=== PATIENT | female | born 1930 | race Caucasian/White ===

== ENCOUNTER 2018-07-02 14:01 | Emergency (ER) | payer MEDICARE ==
[2018-07-02] MEDS ORDERED: Adacel (T-DAP) 0.5 ML VIAL ONE (14:34)
== END 2018-07-02 16:08 | disposition home or self-care (01) ==
LOC: ERS 14:01
DX: S00.03XA Contusion of scalp, initial encounter (principal); I10 Essential (primary) hypertension; Z79.899 Other long term (current) drug therapy; Z23 Encounter for immunization; W18.30XA Fall on same level, unspecified, initial encounter
CPT/HCPCS: 90471; 90715

== ENCOUNTER 2019-03-05 15:20 | Emergency (ER) | payer MEDICARE ==
[2019-03-05 17:47] LABS: Bilirubin Negative (Negative); Blood, Urine Small (Negative); Clarity CLEAR (Clear); Glucose, Urine (Dipstick) Negative (Negative); Leukocyte Negative (Negative); Nitrite Positive (Negative); Protein, Urine (Dipstick) Negative (Neg-Trace); Specific Gravity, Urine 1.014 (1.002-1.036); Urobilinogen 0.2 mg/dL (0.2-1.0)
[2019-03-05 17:49] LABS: #Lymphocytes 1.2 thou/uL (1.20-3.40); #Monocytes 1.3 thou/uL (0.11-0.59); #Neutrophils 12.5 thou/uL (1.40-6.50); %Basophils 0.2 % (0.0-1.0); %Eosinophils 0.1 % (0.0-10.0); %Lymphocytes 8.2 % (21.0-51.0); %Monocytes 8.4 % (0.0-10.0); Hemoglobin 13.1 g/dL (12.0-16.0); Mean Corpuscular HGB CONC 32.9 g/dL (32.0-36.0); Mean Corpuscular Hemoglobin 30.6 pg (27.0-31.0); Mean Platelet Volume 8.1 fL (7.4-10.4); Platelet Count 178 thou/uL (130-400); RBC Distribution Width 11.7 % (11.5-14.5); Red Blood Cell (RBC) Count 4.26 mill/uL (4.20-5.40); White Blood Cell (WBC) Count 15.1 thou/uL (4.8-10.8)
[2019-03-05 17:57] LABS: Bacteria/HPF 4+ HPF (None Seen); Hyaline Casts/LPF 0-3 HYALINE CAST LPF (0-3 Hyaline); Pathc Cast-AUWi Flag 0.81 (0-2.49); Squamous Epithelial 0-3 HPF (0-3); WBC/HPF 0-3 HPF (0-3)
[2019-03-05 18:12] LABS: ALT (SGPT) 9 U/L (8-55); AST (SGOT) 13 U/L (5-34); Albumin 3.9 g/dL (3.4-4.8); Alkaline Phosphatase 107 U/L (40-150); Anion Gap 10 mmol/L (10-20); BUN (Urea Nitrogen) 21 mg/dL (9.8-20.1); Bilirubin, Total 0.4 mg/dL (0.2-1.2); CK (CPK) 22 U/L (29-168); Calc. Creatinine Clearance 0 mL/min (70-130); Calcium 9.8 mg/dL (7.8-10.44); Carbon Dioxide 26 mmol/L (23-31); Chloride 104 mmol/L (98-107); Estimated GFR-MDRD 49; Globulin 2.6 g/dL (2.4-3.5); Glucose 133 mg/dL (83-110); Lipase 18 U/L (8-78); Potassium 4.4 mmol/L (3.5-5.1); Protein, Total 6.5 g/dL (6.0-8.3); Sodium 136 mmol/L (136-145)
--- NOTE | 2019-03-05 19:24 | RAD ---
PORTABLE CHEST: 03/05/19 HISTORY: Trauma with diffuse pain. Pain in ribs and back. Heart size is enlarged. Atherosclerotic changes are seen in the aorta. The lungs are clear of infiltr ates. There are no signs of pneumothorax. No rib fractures are identified. IMPRESSION: Cardiomegaly. POS: KATI
== END 2019-03-05 18:30 | disposition home or self-care (01) ==
LOC: ERS 15:20
DX: N39.0 Urinary tract infection, site not specified (principal); I10 Essential (primary) hypertension; Z79.899 Other long term (current) drug therapy; Z79.01 Long term (current) use of anticoagulants; W17.89XA Other fall from one level to another, initial encounter
CPT/HCPCS: 36415; 51701; 71045; 80053; 81003; 81015; 82550; 83690; 85025; 87804; A4353

== ENCOUNTER 2019-03-08 04:41 | Inpatient (IN) | payer MEDICARE ==
[2019-03-08 05:04] LABS: #Lymphocytes 0.7 thou/uL (1.20-3.40); #Monocytes 1.9 thou/uL (0.11-0.59); %Basophils 0.1 % (0.0-1.0); %Eosinophils 0.1 % (0.0-10.0); %Lymphocytes 3.8 % (21.0-51.0); %Monocytes 9.6 % (0.0-10.0); %Neutrophils 86.4 % (42.0-75.0); Hemoglobin 12.3 g/dL (12.0-16.0); Mean Corpuscular HGB CONC 32.5 g/dL (32.0-36.0); Mean Corpuscular Hemoglobin 30.5 pg (27.0-31.0); Mean Platelet Volume 9.1 fL (7.4-10.4); Platelet Count 121 thou/uL (130-400); RBC Distribution Width 11.7 % (11.5-14.5); Red Blood Cell (RBC) Count 4.04 mill/uL (4.20-5.40); White Blood Cell (WBC) Count 19.6 thou/uL (4.8-10.8)
[2019-03-08 05:19] LABS: ALT (SGPT) 8 U/L (8-55); AST (SGOT) 11 U/L (5-34); Albumin 3.2 g/dL (3.4-4.8); Alkaline Phosphatase 101 U/L (40-150); Anion Gap 10 mmol/L (10-20); BUN (Urea Nitrogen) 32 mg/dL (9.8-20.1); Bilirubin, Total 0.4 mg/dL (0.2-1.2); Calc. Creatinine Clearance 0 mL/min (70-130); Calcium 10.4 mg/dL (7.8-10.44); Carbon Dioxide 26 mmol/L (23-31); Chloride 104 mmol/L (98-107); Estimated GFR-MDRD 42; Globulin 3.1 g/dL (2.4-3.5); Glucose 195 mg/dL (83-110); Lipase 8 U/L (8-78); Potassium 4.3 mmol/L (3.5-5.1); Protein, Total 6.3 g/dL (6.0-8.3); Sodium 136 mmol/L (136-145)
[2019-03-08] MEDS ORDERED: Piperacillin/Tazobactam 3.375 GM VIAL ONE (05:32)
--- NOTE | 2019-03-08 07:56 | CT ---
CT ABDOMEN AND PELVIS WITH IV CONTRAST: Date: 03/08/19 INDICATION: Elderly female patient with abdominal pain, nausea, and vomiting. COMPARISON: None. FINDINGS: There is bibasilar atelectasis. The gallbladder is markedly distended with gallbladder wall thickening and pericholecystic fluid. The re is suggestion of some adjacent inflammatory change involving the duodenum. There is some mild enha ncement involving the mucosa of the common bile duct and gallbladder. The pancreas, adrenal glands, and spleen appear within normal limits. Kidneys are within normal limit s. There is inflammatory stranding and fluid in the right upper quadrant of the abdomen adjacent to the gallbladder. There is some mild prominence of adjacent small bowel loops within the right upper quadr ant that may reflect a reactive ileus. Moderate calcifications involving the abdominopelvic vasculature. There is extensive postsurgical change involving the lumbar spine consistent with posterolateral fusi on from L1-L5. There is advanced degenerative change at L5-S1. There is remote-appearing wedge compre ssion abnormality of T12. IMPRESSION: 1. Findings highly suspicious for acute calculus cholecystitis with associated reactive edematous ch anges involving the duodenum and some reactive ileus involving a loop of distal ileum in the right up per quadrant. Mild amount of pericholecystic fluid is seen within the right upper quadrant. Right upp er quadrant ultrasound may be helpful for additional characterization. 2. Bibasilar atelectasis. 3. Other chronic findings as above. POS: BH
--- NOTE | 2019-03-08 08:01 | ULT ---
RIGHT UPPER QUADRANT ULTRASOUND: Date: 03/08/19 INDICATOIN: History of epigastric abdominal pain, nausea, and vomiting. FINDINGS: The gallbladder is markedly distended with gallbladder wall thickening, multiple intraluminal stones, and sludge. There is no report of sonographic Stovall's sign. The common bile duct is upper limits of normal, measuring 6.2 mm. The liver is slightly heterogeneous in appearance and measures 14.4 cm. Pa ncreas is largely obscured. No free fluid is grossly evident. IMPRESSION: 1. Gallbladder distention with stones and gallbladder sludge. There is gallbladder wall thickening. There is no report of sonographic Stovall's sign; however, in light of the patient's recent CT of the abdomen and pelvis demonstrating pericholecystic edema, findings remain suspicious for acute calculus cholecystitis. 2. No additional sonographic abnormality in the right upper quadrant. POS: BH
[2019-03-08] MEDS ORDERED: Ondansetron ODT 4 MG TAB PO PRN (08:36)
[2019-03-08] MEDS ORDERED: Acetaminophen 325 MG TAB PO PRN (08:36)
[2019-03-08] MEDS ORDERED: Ondansetron PF 4 MG/2 ML Vial IVP PRN (08:36)
[2019-03-08] MEDS ORDERED: Metoprolol Tartrate 5 MG/5 ML VIAL IVP PRN (08:36)
--- NOTE | 2019-03-08 09:28 | HP ---
PRIMARY CARE PHYSICIAN: Doe Almendarez MD CHIEF COMPLAINT: Abdominal pain. HISTORY OF PRESENT ILLNESS: Ms. Rod is a present 88-year-old female, who has a history of hypertension. She lives at the [facility], and she says that on Monday, she fell when she was trying to do some walking and says she believes her problems started after this. She says after the fall, on Monday, she got up and she was throwing up and having dry heaves. She was also having abdominal pain as well. She says she went to the ER, where they evaluated her. They x-rayed her ribs to make sure she did have any rib fractures and did urinalysis and found that she had a urinary tract infection. She was given a prescription for Cipro. She says that during this time, she did not really get much better. She was still having poor appetite, abdominal pain, which she says was across her abdomen and over to the right side. The pain got progressively worse and in the morning of admission around 4:00 a.m., she vomited, what would look like old blood and her daughter says she was "talking out of her head." During this time, she was also having some chills and fever off and on and so they brought her to the emergency room again. At this time, they did a CT scan of the abdomen, which demonstrated findings consistent with acute cholecystitis with some reactive edematous changes involving the duodenum and reactive changes in the ileus. She also had an elevated white blood cell count at 19.6, and she is being admitted for acute cholecystitis. The patient denies having any chest pain or shortness of breath. She denies any history of any heart problems or heart disease. She is more or less sedentary and typically gets around on a scooter. She denies any leg pain or leg swelling. The patient has had several surgeries in the past and has had no significant complications. However, she does admit to having bad reactions to most narcotic pain medications. REVIEW OF SYSTEMS: All systems were reviewed and are negative except for that mentioned in the history of present illness. PAST MEDICAL HISTORY: Significant for hypertension, depression, and chronic venous stasis. 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 ALLERGIES: NO ALLERGIES, BUT SHE IS INTOLERANT TO MOST NARCOTICS, WHICH MAKE HER SICK. SOCIAL HISTORY: She is a full code. Her son, Santiago Carmona, is her medical decision maker. She is a nonsmoker and nondrinker and she is . FAMILY HISTORY: Significant for cancer in her sister. MEDICATIONS: Include; 1. Lasix 20 mg daily. 2. Imodium. 3. Cipro 500 mg daily. 4. Celebrex 200 mg p.r.n. 5. Fluoxetine 20 mg daily. 6. Lidoderm patch. 7. Meclizine 25 mg as needed. 8. Metoprolol extended release 50 mg daily. 9. MiraLAX p.r.n. 10. Nifedipine extended release 60 mg daily. 11. Potassium chloride extended release 20 mEq daily. 12. Zofran 4 mg q.8 as needed. PHYSICAL EXAMINATION: GENERAL: She is alert and oriented. She appears to be in no acute distress. She is well developed, well nourished, very pleasant and jovial. VITAL SIGNS: Her blood pressure is 123/70, heart rate 80, respiratory rate of 20, and temperature is 98.1. HEENT: Her pupils are equal, round, and reactive. Extraocular muscles are intact. Her sclerae are anicteric. Throat; no erythema, no exudates. NECK: No adenopathy. No bruits. LUNGS: Clear to auscultation with an occasional rhonchi. There is no wheezing. CARDIOVASCULAR: She has a normal S1 and S2. I did not appreciate an S3 or S4. No murmurs, clicks, or rubs. ABDOMEN: Obese. It is soft. She has some right upper as well as lower quadrant tenderness. There is no rebound. No guarding. No organomegaly. EXTREMITIES: There is no edema. No calf tenderness. No joint effusions. NEUROLOGIC: Cranial nerves are grossly intact. Her muscle strength is 5/5 in both her upper and lower extremities. SKIN AND INTEGUMENT: There are no skin changes. No rash. LABORATORY RESULTS: White blood cell count is 19.6, hemoglobin 12.3, hematocrit is 37.9, and platelet count is 121. Sodium 136, potassium 4.3, chloride is 104, CO2 is 26, BUN of 32, creatinine 1.2, and glucose is 195. ASSESSMENT AND PLAN: 1. This is a pleasant 88-year-old female, who presents with fairly sudden or subacute development of abdominal pain as well as subjective chills and elevated white blood cell count. She has radiographic evidence for acute cholecystitis. Her clinical symptoms are consistent. She will be admitted to the surgical floor, started on IV antibiotics. General Surgery has been consulted and I anticipate that she will require a cholecystectomy. 2. Hypertension. Once she is able to tolerate p.o., we will restart her beta-dilan and have IV metoprolol p.r.n. 3. Depression. This seems to be stable and we will continue fluoxetine. 4. We will get a baseline EKG, if this has not already been done and we will be happy to follow along with you. Job ID: [id number]
[2019-03-08] MEDS: Famotidine/PF 20 mg/2ml Vial SLOW IVP SCH (09:45)
[2019-03-08] MEDS ORDERED: ISOVUE-370 76%-LOCM 1 ML ONE (10:42)
[2019-03-08 11:01] VITALS: BMI 29.0
--- NOTE | 2019-03-08 11:32 | CON ---
DATE OF CONSULTATION: 03/08/2019 HISTORY: This is an 88-year-old woman, who presented with recurrent epigastric right upper quadrant abdominal pain. The patient was seen in the emergency department 3 days ago with insidious onset of epigastric right upper quadrant abdominal pain, associated with multiple episodes of bilious emesis. She was subsequently discharged from emergency department with a presumptive diagnosis of acute urinary tract infection and placed on antibiotics. The patient returned this time with progressive epigastric right upper quadrant abdominal pain, which woke her up this morning. She endorses a blood-tinged bilious emesis this morning. The pain is described as sharp, occasionally radiating to the back. She rates the pain at 9/10 at maximum intensity. She denies any fevers or chills. She denies any change in her bowel habits. PAST MEDICAL HISTORY: Significant for; 1. Essential hypertension. 2. Chronic venous stasis of lower extremities. 3. Chronic depression. PAST SURGICAL HISTORY: Significant for; 1. . 2. Total abdominal hysterectomy. 3. Childhood appendectomy. 4. Two previous exploratory laparotomies and segmental bowel resection and primary anastomosis for abnormal polyps. 5. She also reports 5 previous back surgeries. SOCIAL HISTORY: The patient is a resident of an assisted living facility in [place]. She denies any cigarette smoking, ethanol, or illicit drug abuse. She is . FAMILY HISTORY: Noncontributory for this patient's age. ALLERGIES: THE PATIENT HAS NO KNOWN DRUG ALLERGIES. REVIEW OF SYSTEMS: Ten-point review of systems essentially unremarkable except as stated in past medical history and chief complaint. PHYSICAL EXAMINATION: GENERAL: An 88-year-old normally developed woman, who is otherwise coherent and interactive and appears stated age. The patient is alert and oriented x3. She appears to be in no acute distress at the time of my evaluation. VITAL SIGNS: This morning include blood pressure 122/62, pulse is 73, respiratory rate is 18, temperature 98.3 degrees Fahrenheit, and oxygen saturation is 95% on 2L by nasal cannula oxygen. HEENT: Normocephalic and atraumatic. Pupils are equal, round, and reactive to light and accommodation. HEART: Regular rate and rhythm. No murmurs or gallops auscultated. LUNGS: Clear to auscultation bilaterally. Her breathing regular and nonlabored. ABDOMEN: Soft and obese with right upper quadrant tenderness to palpation. She has a positive Stovall sign. Liver and spleen otherwise nonpalpable below costal margin. She has a healed midline incisional scar, consistent with previous history of multiple abdominal operations. NEUROLOGIC: No focal deficits present. LABORATORY FINDINGS: Today include a CBC with 19,600 white blood cells, hemoglobin and hematocrit of 12.3 and 37.9 respectively, and platelet count is 121,000. Metabolic profile; sodium 136, potassium is 4.3, chloride is 104, bicarb is 26, BUN is 32, creatinine is 1.22, and glucose 195. Total bilirubin 0.4, AST and ALT are 11 and 8 respectively, alkaline phosphatase is normal at 101, and serum lipase is normal at 8. IMAGING STUDIES: I have personally reviewed the abdominal ultrasound obtained in this admission, which is significant for gallbladder distention with multiple intraluminal gallstones and sludge. There is gallbladder wall thickening. Common bile duct is normal for this patient's age at 6.2 mm in diameter. IMPRESSION: Acute cholecystitis with cholelithiasis. RECOMMENDATION: Laparoscopic cholecystectomy. I have advised the patient of the above findings and recommendations. I did also inform her of the risks and benefits of the proposed surgery to include, but not limited to bleeding, infection, injury to bile duct or surrounding structures. This information was given to the patient in the presence of her nurse. I advised the patient of additional likelihood of conversion to open given her multiple intraabdominal operations and possibility that there may be significant adhesions, which may make laparoscopic procedure prohibitive. The patient indicates understanding of the information I provided to her today. I have answered her questions. She is going to consent for the proposed surgical intervention. Thank you again, Dr. Her, for allowing me the opportunity to participate in the care of this patient. Job ID: [id number]
[2019-03-08] MEDS ORDERED: Ondansetron PF 4 MG/2 ML Vial ONE (16:23)
[2019-03-08] MEDS ORDERED: Glycopyrrolate 0.2 MG/ML 5 ML SYRINGE ONE (16:23)
[2019-03-08] MEDS ORDERED: Succinylcholine Chloride 20 MG/ML 10 ml SYRINGE FS ONE (16:23)
[2019-03-08] MEDS ORDERED: Lidocaine 1% PF 5 ML VIAL ONE (16:23)
[2019-03-08] MEDS ORDERED: PROPOFOL 200 MG/20 ML VIAL ONE (16:23)
[2019-03-08] MEDS ORDERED: ePHEDrine 50 MG/ML VIAL ONE (16:23)
[2019-03-08] MEDS ORDERED: Dexamethasone 20 MG/5 ML VIAL ONE (16:23)
[2019-03-08] MEDS ORDERED: Rocuronium Bromide 10 MG/ML (10ML VIAL) ONE (16:23)
[2019-03-08] MEDS ORDERED: ceFOXitin 2 GM/50 ML Duplex BAG IVPB SCH (16:45)
[2019-03-08] MEDS ORDERED: Bupivacaine/Epinephrine 0.25% 30 ML VIAL ONE (18:45)
[2019-03-08] MEDS ORDERED: Fentanyl 100 MCG/2 ML VIAL ONE ×2 (18:59→19:04)
[2019-03-08] MEDS ORDERED: Ondansetron HCl/PF 4 MG/2 ML Vial IVP PRN (21:51)
[2019-03-08] MEDS ORDERED: Promethazine HCl 25 MG/ML VIAL SLOW IVP PRN (21:51)
[2019-03-08] MEDS ORDERED: Promethazine HCl 25 MG/ML VIAL IM PRN (21:51)
--- NOTE | 2019-03-09 00:31 | OP ---
DATE OF PROCEDURE: 03/08/2019 POSTOPERATIVE DIAGNOSES: 1. Acute cholecystitis. 2. Cholelithiasis. POSTOPERATIVE DIAGNOSES: 1. Acute gangrenous cholecystitis. 2. Cholelithiasis. OPERATION PERFORMED: Laparoscopic cholecystectomy. ANESTHESIA: General endotracheal. ESTIMATED BLOOD LOSS: 30 mL. FLUIDS: Given 750 mL crystalloids. COUNTS: Sponge and instrument counts were verified as correct x2. COMPLICATIONS: None apparent at the time of operation. INDICATIONS FOR OPERATION: An 88-year-old woman, presented with abdominal pain. Clinical radiographic examination was consistent with acute cholecystitis cholelithiasis for which the patient was brought to the operating room for cholecystectomy. Findings are consistent with dilated gangrenous acute cholecystitis with cholelithiasis. The gallbladder had a large amount of hydrops and purulent foul-smelling pus. DESCRIPTION OF OPERATION: Informed consent obtained from the patient, was brought to the operating room and placed in supine position. Following general anesthesia, abdomen was sterilely prepped and draped in usual fashion. The skin below the umbilicus was infiltrated with 0.25% Marcaine with epinephrine. A small curvilinear infraumbilical incision was made using 11 scalpel. The umbilical stalk was grasped with a Lalitha and elevated. A Veress needle was inserted through the incision, placed in the peritoneal cavity through which the abdomen was insufflated with 2.5 L of CO2 gas. Intraabdominal pressure noted at 2 mmHg. Following abdominal insufflation, Veress needle was removed and replaced with a 5 mm trocar introduced using a Visiport under laparoscopy. Laparoscopy confirmed proper placement of the port, no injuries to underlying structures. Additional laparoscopy reveals the right upper quadrant completely encased by omental adhesions admixed with copious amount of purulent exudates. Under direct laparoscopy, a 12 mm epigastric and two 5 mm right lateral subcostal ports were placed after the overlying skin were infiltrated with 0.25% Marcaine with epinephrine and appropriate incision was made. The patient was placed in the reverse Trendelenburg position, rotated to her left. I used Prestige grasper to bluntly take down omental adhesions to expose the fundus of a gangrenous gallbladder. I attempted to grasp the gallbladder with a Prestige grasper through the right lateral subcostal port, this was markedly distended in toto. I decompressed the gallbladder using an Endo suction cautery catheter evacuating large amount of white bile followed by purulent foul-smelling pus. I then applied a Prestige grasper to the fundus of the gallbladder, which was elevated cephalad. Omental adhesions were then bluntly taken down from the remainder of the gallbladder. A 2nd Prestige grasper was introduced through the right medial subcostal port grasping the Felton pouch, which was retracted laterally. The cystic duct was dissected free from surrounding structures at the triangle of Calot. The duct was divided between clips, applying 2 clips proximally and 1 clip at the junction of the cystic duct and gallbladder. Cystic artery dissected free from surrounding structures and divided between clips in a similar fashion. The gallbladder was removed from the liver bed using cautery with good hemostasis. The gallbladder was then delivered off the abdominal cavity using an EndoCatch. Operative site was copiously irrigated, cleared with saline, noting good hemostasis in place. Finding no other pathology, laparoscopy was terminated. A #19 Manav drain was introduced into the subhepatic space allowing this to exit the abdominal cavity through the right lateral subcostal port. The drain was secured to anterior abdominal wall using 2-0 silk suture. Fascia of the epigastric port was then closed using 0 Vicryl suture and Endoclosure device on the laparoscopy. The abdomen was desufflated. All ports and instruments removed and accounted for. Skin incisions were closed using 4-0 Monocryl suture in subcuticular fashion. Dermabond was applied over incisional closure. The patient tolerated this operation without any apparent complication and was returned to recovery room in a satisfactory condition. Job ID: [id number]
[2019-03-09 05:17] LABS: #Lymphocytes 0.3 thou/uL (1.20-3.40); #Neutrophils 12.8 thou/uL (1.40-6.50); %Eosinophils 0.1 % (0.0-10.0); %Lymphocytes 2.3 % (21.0-51.0); %Monocytes 7.1 % (0.0-10.0); %Neutrophils 90.5 % (42.0-75.0); Hemoglobin 11.7 g/dL (12.0-16.0); Mean Corpuscular HGB CONC 32.8 g/dL (32.0-36.0); Mean Corpuscular Hemoglobin 31.1 pg (27.0-31.0); Mean Corpuscular Volume 94.8 fL (78.0-98.0); Mean Platelet Volume 10.5 fL (7.4-10.4); Platelet Count 83 thou/uL (130-400); Red Blood Cell (RBC) Count 3.76 mill/uL (4.20-5.40); White Blood Cell (WBC) Count 14.1 thou/uL (4.8-10.8)
[2019-03-09 05:27] LABS: Anion Gap 10 mmol/L (10-20); BUN (Urea Nitrogen) 31 mg/dL (9.8-20.1); Calc. Creatinine Clearance 44 mL/min (70-130); Calcium 10.4 mg/dL (7.8-10.44); Carbon Dioxide 27 mmol/L (23-31); Chloride 106 mmol/L (98-107); Estimated GFR-MDRD 45; Glucose 176 mg/dL (83-110); Potassium 4.8 mmol/L (3.5-5.1); Sodium 138 mmol/L (136-145)
[2019-03-09] MEDS: Enoxaparin Sodium 40 MG/0.4 ML SYRINGE SC SCH (08:36)
[2019-03-09] MEDS: Famotidine/PF 20 mg/2ml Vial SLOW IVP SCH (08:38)
[2019-03-09] MEDS: Piperacillin/Tazobactam 3.375 GM in Sodium Chloride 0.9% 100 ML IVPB SCH ×4 (08:38→21:37)
[2019-03-09 09:52] LABS: ALT (SGPT) 22 U/L (8-55); AST (SGOT) 36 U/L (5-34); Alkaline Phosphatase 106 U/L (40-150); Bilirubin, Direct 0.2 mg/dL (0.1-0.3); Bilirubin, Total 0.3 mg/dL (0.2-1.2)
--- NOTE | 2019-03-09 15:51 | PDOC.PN ---
- Subjective Encounter Start Date: 03/09/19 Encounter Start Time: 09:15 Ms. Rod was seen today in follow-up of acute cholecystitis. She is a bit sleepy this morning, but says she does not have any complaints. She has a bit of abdominal soreness, but otherwise ok. - Objective Resuscitation Status - Order Detail: 03/08/19 08:32 Resuscitation Status Routine Resuscitation Status: FULL: Full Resuscitation MAR Reviewed: Yes Vital Signs & Weight: Vital Signs (12 hours) Temp Pulse Resp BP Pulse Ox 03/09/19 11:00 98.1 F 66 14 126/62 97 03/09/19 08:08 98 03/09/19 07:24 98.4 F 67 18 131/69 98 03/09/19 04:00 98 F 68 18 128/70 97 Weight Weight 180 lb I&O: 03/08/19 03/09/19 03/10/19 06:59 06:59 06:59 Intake Total 600 310 Balance 600 310 Result Diagrams: 03/09/19 04:48 03/09/19 04:48 Phys Exam - Physical Examination HEENT: PERRLA, sclera anicteric Respiratory: no wheezing, no rales, no rhonchi, clear to auscultation bilateral Cardiovascular: RRR, no significant murmur, no rub Gastrointestinal: soft, non-tender, no distention, positive bowel sounds Musculoskeletal: pulses present, edema present Neurological: non-focal Dx/Plan (1) Acute gangrenous cholecystitis Code(s): K81.0 - ACUTE CHOLECYSTITIS Status: Acute (2) Hypertension Code(s): I10 - ESSENTIAL (PRIMARY) HYPERTENSION Status: Chronic (3) Depression Code(s): F32.9 - MAJOR DEPRESSIVE DISORDER, SINGLE EPISODE, UNSPECIFIED Status : Chronic - Plan * Acute GangrenousCholecystitis- Discussed with Dr. Galaviz, she had a significant amount of purrulence around the Gallbladder, and in the abdominal cavity, when she was opened for surgery- will continue antibiotics, and she will need to discharged on antibiotics as well. * HTN- blood pressure is well controlled * Depression- stable- re-start Celexa
[2019-03-10] MEDS: Piperacillin/Tazobactam 3.375 GM in Sodium Chloride 0.9% 100 ML IVPB SCH ×4 (02:46→20:55)
[2019-03-10] MEDS: Famotidine/PF 20 mg/2ml Vial SLOW IVP SCH (08:26)
[2019-03-10] MEDS: Escitalopram Oxalate 10 mg Tablet PO SCH (08:26)
[2019-03-10] MEDS: Enoxaparin Sodium 40 MG/0.4 ML SYRINGE SC SCH (08:26)
[2019-03-10] MEDS ORDERED: Sodium Chloride 0.9% (PF) 10 ML VIAL FS PRN (11:17)
--- NOTE | 2019-03-10 12:31 | RAD ---
ACUTE ABDOMINAL SERIES: CLINICAL HISTORY: Nausea, postoperative. FINDINGS: There is interstitial prominence of each lung. Mild pleural-based densities are seen bilaterally. Enl argement of cardiac silhouette and pulmonary vasculature present. Decubitus views are performed which reveal differential air-fluid levels. There is air distended ralph l demonstrated more notable at the upper and right lateral abdomen. IMPRESSION: Differential air-fluid levels are demonstrated with distention of the bowel. This may be on the basis of ileus versus obstruction. Recommend clinical correlation as well as imaging follow-up. Transcribed Date/Time: 03/10/2019 1:03 PM
--- NOTE | 2019-03-10 15:13 | PDOC.PN ---
- Subjective Encounter Start Date: 03/10/19 Encounter Start Time: 15:11 Ms. Rod was seen today in follow-up post cholecyctectomy. She had an episode of nausea and emesis earlier today. NG tube had to be placed for a short period. She tells me she feels fine now. - Objective Resuscitation Status - Order Detail: 03/08/19 08:32 Resuscitation Status Routine Resuscitation Status: FULL: Full Resuscitation MAR Reviewed: Yes Vital Signs & Weight: Vital Signs (12 hours) Temp Pulse Resp BP Pulse Ox 03/10/19 08:26 96 03/10/19 07:24 98.9 F 127 H 16 130/89 96 03/10/19 04:00 98.5 F 66 16 133/77 95 Weight Weight 180 lb I&O: 03/09/19 03/10/19 03/11/19 06:59 06:59 06:59 Intake Total 600 1180 Balance 600 1180 Result Diagrams: 03/09/19 04:48 03/09/19 04:48 Phys Exam - Physical Examination HEENT: PERRLA Respiratory: no rales + occasional wheeze and rhonchi Cardiovascular: RRR, no significant murmur, no rub Gastrointestinal: soft, non-tender, no distention, positive bowel sounds Musculoskeletal: no edema, pulses present Dx/Plan (1) Acute gangrenous cholecystitis Code(s): K81.0 - ACUTE CHOLECYSTITIS Status: Acute (2) Ileus Code(s): K56.7 - ILEUS, UNSPECIFIED Status: Acute (3) Hypertension Code(s): I10 - ESSENTIAL (PRIMARY) HYPERTENSION Status: Chronic (4) Depression Code(s): F32.9 - MAJOR DEPRESSIVE DISORDER, SINGLE EPISODE, UNSPECIFIED Status : Chronic - Plan * Acute cholecystitis- s/p lap magi- clinically stable, she may have developed a mild ileus * Continue Zosyn * She had some mild wheezing and rhonchi on exam- Will add incentive spirometry * HTN- blood pressure is controlled.
--- NOTE | 2019-03-10 17:58 | PRG ---
DATE OF SERVICE: 03/10/2019 SUBJECTIVE: It is postop day #2 laparoscopic cholecystectomy. The patient had no overnight events. Although this morning, she complains of severe nausea. The patient had blood cultures drawn and both showed no growth to date. The patient reports that her pain is controlled, but again complains of severe nausea. The patient was suspected for ileus. NG tube was placed by Dr. Galaviz. There was a large amount of gastric contents approximately 1 L. NG tube was attempted to clear, but due to the size of the NG tube, it clotted off. NG tube was discontinued at this time, but will replace if the patient continues to get nauseated again. OBJECTIVE: VITAL SIGNS: Temperature 98.9, pulse 127, respirations 16, SpO2 of 96% on room air, BP 130/89. GENERAL: The patient awake and alert in bed. The patient in moderate distress due to severe nausea. NEUROLOGIC: The patient is awake, alert, oriented x3. HEENT: Normocephalic and atraumatic. HEART: Regular rate and rhythm. The patient slightly tachycardic. LUNGS: Breathing regular and nonlabored. No distress. Auscultation clear bilaterally. ABDOMEN: Soft, distended. Positive active bowel sounds. LABORATORY DATA: No labs to evaluate today. DIAGNOSTIC STUDIES: Acute abdominal series; differential air-fluid levels demonstrated with distention of the bowel. Ileus versus obstruction. IMPRESSION: Status post laparoscopic cholecystectomy day #2, ileus. PLAN: We will continue supportive care. We will continue antibiotics. We will continue pain control. We will replace NG tube if the patient becomes nauseated again. The patient was examined with Dr. Galaviz this morning during rounds. Job ID: [id number] [id number]
[2019-03-11] MEDS: Piperacillin/Tazobactam 3.375 GM in Sodium Chloride 0.9% 100 ML IVPB SCH ×4 (02:04→20:48)
[2019-03-11 08:28] LABS: Anion Gap 13 mmol/L (10-20); BUN (Urea Nitrogen) 28 mg/dL (9.8-20.1); Calc. Creatinine Clearance 56 mL/min (70-130); Calcium 10.4 mg/dL (7.8-10.44); Carbon Dioxide 27 mmol/L (23-31); Chloride 105 mmol/L (98-107); Estimated GFR-MDRD 60; Glucose 87 mg/dL (83-110); Potassium 4.3 mmol/L (3.5-5.1); Sodium 141 mmol/L (136-145)
[2019-03-11] MEDS: Enoxaparin Sodium 40 MG/0.4 ML SYRINGE SC SCH (08:37)
[2019-03-11] MEDS: Pantoprazole 40 MG VIAL IVP SCH (08:37)
[2019-03-11] MEDS: Escitalopram Oxalate 10 mg Tablet PO SCH (08:37)
[2019-03-11] MEDS: Famotidine/PF 20 mg/2ml Vial SLOW IVP SCH (08:37)
[2019-03-11 10:40] LABS: Hemoglobin 11.5 g/dL (12.0-16.0); Mean Corpuscular HGB CONC 32.1 g/dL (32.0-36.0); Mean Corpuscular Hemoglobin 30.9 pg (27.0-31.0); Mean Corpuscular Volume 96.3 fL (78.0-98.0); Mean Platelet Volume 10.3 fL (7.4-10.4); RBC Distribution Width 12.2 % (11.5-14.5); Red Blood Cell (RBC) Count 3.71 mill/uL (4.20-5.40)
[2019-03-11 10:44] LABS: Platelet Count 198 thou/uL (130-400)
[2019-03-11 10:50] LABS: Band 4 % (5-11); Eosinophils 4 % (0-10); Lymphocytes 18 % (21-51); MDiff Complete? YES; Metamyelocyte 1 % (0-0); Monocytes 18 % (0-10); Myelocyte 2 % (0-0); Neutrophil 52 % (42-75); Platelet Clumps MARKED; Platelet Morphology Comment Appears Adequate; RBC Morphology Normal; Reactive Lymphocytes 1 % (0-10)
--- NOTE | 2019-03-11 18:10 | PDOC.PN ---
- Subjective Encounter Start Date: 03/11/19 Encounter Start Time: 13:00 Ms. Rod was seen in follow-up post cholecystectomy. she does not have any complaints today. She denies any nausea, and denies abdominal pain. - Objective Resuscitation Status - Order Detail: 03/08/19 08:32 Resuscitation Status Routine Resuscitation Status: FULL: Full Resuscitation MAR Reviewed: Yes Vital Signs & Weight: Vital Signs (12 hours) Temp Pulse Resp BP Pulse Ox 03/11/19 15:07 98.3 F 99 18 142/95 H 96 03/11/19 10:56 98.4 F 93 18 134/85 93 L 03/11/19 08:37 94 L 03/11/19 07:05 98.0 F 101 H 18 134/81 94 L Weight Weight 180 lb I&O: 03/10/19 03/11/19 03/12/19 06:59 06:59 06:59 Intake Total 1180 1110 Output Total 1010 Balance 1180 100 Result Diagrams: 03/11/19 07:29 03/11/19 07:29 Phys Exam - Physical Examination HEENT: PERRLA Respiratory: no wheezing, no rales, no rhonchi, clear to auscultation bilateral Cardiovascular: RRR, no significant murmur, no rub Gastrointestinal: soft, non-tender, no distention, positive bowel sounds Musculoskeletal: pulses present, edema present trace pedal edema Dx/Plan (1) Acute gangrenous cholecystitis Code(s): K81.0 - ACUTE CHOLECYSTITIS Status: Acute (2) Ileus Code(s): K56.7 - ILEUS, UNSPECIFIED Status: Acute (3) Hypertension Code(s): I10 - ESSENTIAL (PRIMARY) HYPERTENSION Status: Chronic (4) Depression Code(s): F32.9 - MAJOR DEPRESSIVE DISORDER, SINGLE EPISODE, UNSPECIFIED Status : Chronic - Plan * Acute gangrenous cholecystitis- she is s/p lap magi- continue Zosyn * HTN- blood pressure is stable * Anticipate discharge back to assisted living facility on a course of oral antibiotics tomorrow if stable .
[2019-03-11] MEDS: Senokot S 8.6-50 MG TAB PO SCH (20:48)
--- NOTE | 2019-03-12 00:45 | PRG ---
DATE OF SERVICE: 03/11/2019 This is Kiana Jones NP dictating a report for Wilfrido Galaviz DO. SUBJECTIVE: This is a 88-year-old female, postop day #3 laparoscopic cholecystectomy. The patient had no overnight events. The patient reports feeling much better today and denies any nausea or vomiting. The patient able to tolerate the diet. The patient still has not had a bowel movement, but is passing a little bit of gas. OBJECTIVE: VITAL SIGNS: Temperature 98.0, pulse 93, respirations 18, SpO2 of 94% on room air, blood pressure 134/81. GENERAL: The patient awake, alert, in no distress. NEUROLOGIC: The patient awake, alert, oriented x3. No neurological deficits. HEENT: Normocephalic, atraumatic. HEART: Regular rate and rhythm. LUNGS: Breathing regular and nonlabored. No distress. ABDOMEN: Soft, nontender, nondistended. Positive bowel sounds. LABORATORY DATA: WBC 7.0, RBC 3.71, hemoglobin 11.5, hematocrit 35.8. Sodium 141, potassium 4.3, chloride 105, carbon dioxide 27, anion gap 13, BUN 28, creatinine 0.89, estimated GFR 60, glucose 87, calcium 10.8. DIAGNOSTICS: There are no diagnostics to review. IMPRESSION: 1. Status post laparoscopic cholecystectomy, postop day #3. 2. Ileus, resolved. PLAN: We will continue supportive care. We will continue antibiotics and pain control. The patient should be able to be discharged tomorrow back to [facility]. Plan has been discussed with Dr. Galaviz who agrees. Job ID: [id number]
[2019-03-12] MEDS: Piperacillin/Tazobactam 3.375 GM in Sodium Chloride 0.9% 100 ML IVPB SCH ×2 (01:46→12:02)
[2019-03-12] MEDS ORDERED: Amoxicillin/Potassium Clav 875 MG TAB PO SCH (09:00)
[2019-03-12] MEDS ORDERED: Polyethylene Glycol 3350 17 GM Packet PO SCH (09:00)
[2019-03-12] MEDS: Escitalopram Oxalate 10 mg Tablet PO SCH (09:36)
[2019-03-12] MEDS: Famotidine/PF 20 mg/2ml Vial SLOW IVP SCH (09:36)
[2019-03-12] MEDS: Senokot S 8.6-50 MG TAB PO SCH (09:36)
[2019-03-12] MEDS: Pantoprazole 40 MG VIAL IVP SCH (09:37)
[2019-03-12] MEDS: Enoxaparin Sodium 40 MG/0.4 ML SYRINGE SC SCH (09:38)
[2019-03-12 15:58] VITALS: BP 131/77; TEMP 97.9
--- NOTE | 2019-03-12 16:28 | DIS ---
DATE OF ADMISSION: 03/08/2019 DATE OF DISCHARGE: 03/12/2019 DISCHARGE DISPOSITION: Inpatient rehabilitation. FOLLOWUP: 1. Follow up with primary care physician, Dr. Almendarez in a week. 2. Follow up with General Surgery, Dr. Galaviz in 2 weeks. DISCHARGE MEDICATIONS: Augmentin 875 mg twice a day for total of 10 days, Lasix 20 mg daily as needed; Procardia XL 30 mg daily, hold for systolic blood pressure less than 130; Protonix 40 mg daily for next 2 weeks; MiraLAX 17 g daily; Florastor 250 mg daily; Senokot-S two tablets b.i.d., Toprol-XL 50 mg daily, Lexapro 10 mg daily. INPATIENT CONDENSER CLEANER: General Surgery, Dr. Galaviz. The patient was seen and examined on the day of discharge. Denies any new complaints. No chest pain, shortness of breath, or palpitations. The patient denies any nausea or vomiting at this time. She is tolerating oral consistency. BRIEF HOSPITAL COURSE: The patient is an 88-year-old female with hypertension, presented to the emergency room with abdominal discomfort. CT scan of the abdomen and pelvis done in the emergency room was consistent with acute cholecystitis. She underwent right upper quadrant ultrasound that showed gallbladder distention with stones along with gallbladder wall thickening. She underwent laparoscopic cholecystectomy by Dr. Galaviz. She developed ileus postop, requiring NG tube decompression. She is tolerating oral consistency and has been cleared by General Surgery for discharge. She also had mild acute kidney injury with creatinine 1.22 that has improved to 0.89. Lasix has been changed to as needed. Procardia XL dose has been reduced to 30 mg daily from 60 mg daily. She appears stable for discharge. FINAL DIAGNOSES: 1. Sepsis with acute organ dysfunction secondary to acute gangrenous cholecystitis, status post laparoscopic cholecystectomy. 2. Acute kidney injury on chronic kidney disease stage 2. 3. Mild protein-calorie malnutrition. 4. Hypertension. 5. Postoperative ileus, improved. 6. Depression, mild, stable. 7. Chronic venous stasis. 8. Physical deconditioning. 9. Chronic low back pain. Total time coordinating the discharge of this patient was 34 minutes. Job ID: [id number]
== END 2019-03-12 17:38 | DRG 854 ==
LOC: ERS 04:41 → SURG A 07:05
PROVIDERS: ADMIT Internal Medicine; ATTEND Internal Medicine
PROC: 0FT44ZZ Resection of Gallbladder, Percutaneous Endoscopic Approach (ICD-10-PCS; principal; 2019-03-08)
DX: A41.9 Sepsis, unspecified organism (principal); K80.00 Calculus of gallbladder with acute cholecystitis without obstruction; K56.7 Ileus, unspecified; N17.9 Acute kidney failure, unspecified; E44.1 Mild protein-calorie malnutrition; K82.A1 Gangrene of gallbladder in cholecystitis; N18.2 Chronic kidney disease, stage 2 (mild); I12.9 Hypertensive chronic kidney disease with stage 1 through stage 4 chronic kidney disease, or unspecified chronic kidney disease; M54.5 Low back pain; I87.8 Other specified disorders of veins; F32.9 Major depressive disorder, single episode, unspecified; Z88.5 Allergy status to narcotic agent; Z68.29 Body mass index [BMI] 29.0-29.9, adult; Z79.899 Other long term (current) drug therapy; Z90.49 Acquired absence of other specified parts of digestive tract; Z90.710 Acquired absence of both cervix and uterus; R65.20 Severe sepsis without septic shock; G89.29 Other chronic pain
CPT/HCPCS: 36415; 51701; 71045; 74022; 74177; 76705; 80048; 80053; 80076; 81003; 81015; 82550; 83690; 85025; 87040; 87804; 88304; 93005; 96365; A4353; C9113; J0694; J1100; J1650; J2001; J2405; J2543; J2704; J3010; J3490; Q9966; S0028

== ENCOUNTER 2019-03-27 22:17 | Emergency (ER) | payer MEDICARE ==
--- NOTE | 2019-03-27 22:56 | RAD ---
XR Ankle Rt 3 View STANDARD History: [Trauma] Comparison: None. Findings: No acute fracture or malalignment. Mild degenerative narrowing at the ankle mortise. No lat eral talar shift. Impression: No acute abnormality.
== END 2019-03-27 23:58 | disposition home or self-care (01) ==
LOC: ERS 22:17
DX: S99.911A Unspecified injury of right ankle, initial encounter (principal); I10 Essential (primary) hypertension; W08.XXXA Fall from other furniture, initial encounter

== ENCOUNTER 2019-03-30 07:31 | Inpatient (IN) | payer MEDICARE ==
[2019-03-30 08:10] LABS: INR-International Normal Ratio 1.1; PTT 28.7 SEC (22.9-36.1); Prothrombin Time 14.8 SEC (12.0-14.7)
[2019-03-30 08:19] LABS: Bilirubin Small (Negative); Blood, Urine Negative (Negative); Clarity CLEAR (Clear); Glucose, Urine (Dipstick) Negative (Negative); Leukocyte Negative (Negative); Nitrite Negative (Negative); Protein, Urine (Dipstick) 30 mg/dL (Neg-Trace); Specific Gravity, Urine 1.028 (1.002-1.036); pH, Urine 5.5 (5.0-9.0)
[2019-03-30 08:21] LABS: Bacteria/HPF None Seen HPF (None Seen); RBC/HPF 0-3 HPF (0-3); WBC/HPF 0-3 HPF (0-3)
[2019-03-30 08:22] LABS: ALT (SGPT) 9 U/L (8-55); AST (SGOT) 14 U/L (5-34); Albumin 3.6 g/dL (3.4-4.8); Alkaline Phosphatase 109 U/L (40-150); Anion Gap 14 mmol/L (10-20); BUN (Urea Nitrogen) 20 mg/dL (9.8-20.1); Bilirubin, Total 0.6 mg/dL (0.2-1.2); CK (CPK) 39 U/L (29-168); Calc. Creatinine Clearance 0 mL/min (70-130); Calcium 9.5 mg/dL (7.8-10.44); Carbon Dioxide 21 mmol/L (23-31); Chloride 109 mmol/L (98-107); Estimated GFR-MDRD 57; Glucose 122 mg/dL (83-110); Lipase 16 U/L (8-78); Potassium 4.1 mmol/L (3.5-5.1); Protein, Total 6.6 g/dL (6.0-8.3); Sodium 140 mmol/L (136-145)
[2019-03-30 08:30] LABS: Hyaline Casts/LPF 0-3 HYALINE CAST LPF (0-3 Hyaline); Renal Epithelial 0-3 HPF (0-3); Transitional Epithelial 0-3 HPF (0-3)
[2019-03-30 08:31] LABS: Manual Microscopic Reviewed? No Path Casts Seen
[2019-03-30 08:32] LABS: #Eosinphils 0.4 thou/uL (0.0-0.7); #Lymphocytes 1.2 thou/uL (1.20-3.40); #Monocytes 1.1 thou/uL (0.11-0.59); #Neutrophils 7.4 thou/uL (1.40-6.50); %Basophils 0.3 % (0.0-1.0); %Eosinophils 3.5 % (0.0-10.0); %Lymphocytes 11.6 % (21.0-51.0); %Monocytes 10.7 % (0.0-10.0); %Neutrophils 73.9 % (42.0-75.0); Hemoglobin 11.6 g/dL (12.0-16.0); Mean Corpuscular Hemoglobin 30.7 pg (27.0-31.0); Mean Corpuscular Volume 93.1 fL (78.0-98.0); RBC Distribution Width 13.5 % (11.5-14.5); Red Blood Cell (RBC) Count 3.77 mill/uL (4.20-5.40); White Blood Cell (WBC) Count 10.1 thou/uL (4.8-10.8)
--- NOTE | 2019-03-30 09:02 | CT ---
CT Brain WO Con: 03/30/2019 7:57 AM CLINICAL HISTORY: Altered mental status. IMAGING TECHNIQUE: Multiple CT images were obtained of the brain without IV contrast. COMPARISON: Noncontrast CT brain dated July 09, 2018. FINDINGS: Infarct: No acute infarct evident. Hemorrhage: None. Hydrocephalus: None.. Basal cisterns: Normal. Cerebral parenchyma: There is stable moderate chronic small vessel white matter ischemic change and m ild generalized cerebral atrophy.. Midline shift: None. Cerebellum: Normal. Brainstem: Normal. OTHER: Calvarium: Normal. Visualized Paranasal sinuses: Clear. Extracranial soft tissues:Normal IMPRESSION: 1. No acute intracranial abnormality. 2. Stable chronic ischemic change.
--- NOTE | 2019-03-30 09:06 | CT ---
CTA Angio Chest W WO Con 03/30/2019 7:45 AM Indication: Chest Pain Technique: Multiple CTA images were obtained of the thorax with IV contrast. 3D reformatted images were constructed from the raw data. Comparison: None Findings: Pulmonary arteries: No central or segmental pulmonary embolus is evident. Heart and Great Vessels: Moderate cardiomegaly. There are scattered vascular calcifications involvin g coronary artery and thoracic aorta. There is enlargement of the pulmonary arteries. Lungs:There is airspace opacity within both upper lobes in a perihilar distribution. There are some p atchy areas of groundglass opacity within the right infrahilar region as well as the lingula. Pleural space: Small bilateral pleural effusions with bibasilar atelectasis. Upper Abdomen: There is a small hiatal hernia. There is fatty infiltration of liver. The gallbladder surgically absent. Osseous Structures: There is diffuse osteopenia. There is scattered degenerative and osteoarthritic change present. Impression: 1. No central or segmental pulmonary vessels. 2. Cardiomegaly with perihilar airspace opacities and bilateral pleural effusions are suspicious for CHF. Perihilar airspace opacities can be seen with pneumonia. Would recommend correlation. 3. Small hiatal hernia 4. Fatty liver
[2019-03-30 09:43] LABS: Mean Platelet Volume 11.6 fL (7.4-10.4); Platelet Count 144 thou/uL (130-400)
[2019-03-30] MEDS ORDERED: Aspirin Chewable 81 MG TAB ONE (10:23)
[2019-03-30] MEDS ORDERED: Magnesium 2 GM/50 ML BAG (IN WATER) ONE (10:25)
[2019-03-30] MEDS ORDERED: Bisacodyl 5 MG TAB PO PRN (11:03)
[2019-03-30] MEDS ORDERED: Acetaminophen 325 MG TAB PO PRN (11:03)
[2019-03-30] MEDS ORDERED: cefTRIAXone\\ROCEPHIN 1 GM VIAL ONE (11:22)
[2019-03-30] MEDS ORDERED: Enoxaparin Sodium 80 MG/0.8 ML SYRINGE ONE (11:22)
[2019-03-30] MEDS: cefTRIAXone\\ROCEPHIN 1 GM in Sodium Chloride 0.9% 100 ML IVPB SCH (11:28)
[2019-03-30] MEDS ORDERED: Enoxaparin Sodium 80 MG/0.8 ML SYRINGE SC SCH (11:30)
[2019-03-30] MEDS ORDERED: ISOVUE-370 76%-LOCM 1 ML ONE (11:57)
--- NOTE | 2019-03-30 12:08 | HP ---
PRIMARY CARE PROVIDER: Doe Almendarez MD CHIEF COMPLAINT: Altered mental status. HISTORY OF PRESENT ILLNESS: Ms. Rod is a pleasant 88-year-old lady, who was seen at [facility] on March 30, 2019. The patient is able to provide some history. The patient's daughter was by the bedside and was able to provide collateral history. Additional history was obtained from discussion with emergency room physician and review of medical records. Ms. Rod was hospitalized at [facility] from March 08 to of this year for sepsis secondary to acute gangrenous cholecystitis. She underwent laparoscopic cholecystectomy. She was discharged to [facility]. The patient's family reports that she had some episodes of confusion prior to discharge from the hospital. At [facility], she was diagnosed with yeast infection as well as urinary tract infection. She was treated with ciprofloxacin. She was discharged to [facility] 5 days ago. She was continuing treatment with ciprofloxacin, but has been "going downhill." She was reportedly tired. She usually does not walk and uses a scooter. A couple of days ago, she tried to stand up and ended up twisting her right ankle. She had imaging done, which did not show any fractures. She does not use oxygen at [place]. She called her daughter earlier today around 5:00 a.m. and was confused. She was reportedly seeing writing on ceiling. She also did not know where she was. By the time I saw her, Ms. Rod is oriented x3. She denies any chest pain or palpitations. The patient was reportedly hypoxic with oxygen saturations in the 70s when EMS saw her. REVIEW OF SYSTEMS: All other systems reviewed and found to be negative. PAST MEDICAL HISTORY: Hypertension, depression, chronic venous stasis, and gangrenous cholecystitis. 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 CODE STATUS: I discussed her code status. She is full code. ALLERGIES: NARCOTICS. SOCIAL HISTORY: The patient denies tobacco use, alcohol use, or recreational drug use. She is currently a resident at [facility]. FAMILY HISTORY: Congestive heart failure in her mother, myocardial infarction in her son, and cancer in her sister. CURRENT MEDICATIONS: 1. Lexapro 20 mg daily. 2. Procardia XL 60 mg daily. 3. Metoprolol succinate 50 mg daily. 4. Ciprofloxacin 500 mg 2 times a day. 5. Celebrex 200 mg daily. 6. Furosemide 20 mg daily. 7. Meclizine 25 mg 3 times a day p.r.n. 8. Zofran 4 mg every 6 hours as needed. 9. Aspirin 325 mg daily. 10. Pantoprazole 40 mg daily. PHYSICAL EXAMINATION: GENERAL: On examination, Ms. Rod is awake and alert, not in acute distress. VITAL SIGNS: Blood pressure is 138/81, pulse 71, respiratory rate 24, and oxygen saturation 100% on 2 L of oxygen. She is afebrile. EYES: No scleral icterus. No conjunctival pallor. ENT: Moist mucosal membranes. No oropharyngeal erythema or exudates. NECK: Supple, nontender. Trachea is midline. RESPIRATORY: Accessory muscles of breathing are not active. Chest wall movements are symmetric bilaterally. LUNGS: Clear to auscultation without wheeze, rhonchi, or crepitations. CARDIOVASCULAR: S1 and S2 are heard, irregular. Peripheral pulses palpable. No carotid bruit. No pericardial rub. ABDOMEN: Soft, nontender. Bowel sounds heard. NEUROLOGIC: Cranial nerves 2 through 12 are intact. MUSCULOSKELETAL: Power is 5/5 in all 4 extremities. She has bruise over the right foot. SKIN: No rashes or subcutaneous nodules. LYMPHATIC: No cervical lymphadenopathy. PSYCHIATRIC: Normal mood. Normal affect. The patient is oriented to person, place, and time. LABORATORY DATA: Ms. Rod's labs and investigations were reviewed. I reviewed her electrocardiogram, which shows atrial fibrillation with rapid ventricular response, no ST changes to suggest an acute coronary syndrome. I also reviewed her noncontrast CT scan of the brain, which did not show any acute stroke or bleed. CT angiogram of the chest did not show any central or segmental pulmonary embolism. She has cardiomegaly with perihilar airspace opacities and bilateral pleural effusions suspicious for CHF or pneumonia. She has normal white count, normocytic anemia with hemoglobin 11.6, normal platelet count. INR 1.1. Normal sodium, normal potassium, normal creatinine, normal LFTs, elevated BNP of 633, ammonia is not elevated, and TSH is normal. Troponin I is normal. Lipase is normal. Lactic acid is normal. Urinalysis is positive for protein, ketones, and bilirubin. ASSESSMENT AND PLAN: Ms. Rod is a pleasant 88-year-old lady, who was seen at [facility] on March 30, 2019. Her problem list includes: 1. Acute metabolic encephalopathy: Ms. Rod is presenting with acute metabolic encephalopathy, most likely secondary to hypoxia from atrial fibrillation with rapid ventricular response. She will be admitted to the hospital for further management. 2. Atrial fibrillation with rapid ventricular response: The patient initially had atrial fibrillation with rapid ventricular response. Ventricular response is now controlled. She did receive one dose of intravenous Cardizem in the emergency room. She has a CHADS2 score of 2. I discussed risks versus benefits of anticoagulation. We will start her on Lovenox for now for stroke prophylaxis. She is on Procardia and metoprolol at [place], we will continue those medications. 3. Acute hypoxic respiratory failure: Most likely secondary to volume overload from atrial fibrillation with rapid ventricular response. We will continue oxygen as needed. We will also administer furosemide. 4. Hypertension: We will resume home medications, monitor vital signs, and titrate antihypertensives as needed. 5. Depression: Mild, stable. 6. Urinalysis is not suggestive of urinary tract infection at this time. However, she is on current antibiotics and this may be a false negative. We will switch to ceftriaxone while she is in the hospital. Her last urine culture from March 25 grew Citrobacter freundii, which is sensitive to ceftriaxone as well as fluoroquinolones. LEVEL OF RISK: High. LEVEL OF COMPLEXITY: High. Job ID: [id number]
[2019-03-30] MEDS ORDERED: Ondansetron PF 4 MG/2 ML Vial IVP PRN (16:29)
[2019-03-30] MEDS ORDERED: Ondansetron ODT 4 MG TAB SL PRN (16:29)
[2019-03-30 16:40] LABS: Troponin I Less than 0.010 ng/mL (< 0.028)
[2019-03-30] MEDS: Enoxaparin Sodium 80 MG/0.8 ML SYRINGE SC SCH (20:57)
[2019-03-31 05:58] LABS: Anion Gap 11 mmol/L (10-20); BUN (Urea Nitrogen) 19 mg/dL (9.8-20.1); Calc. Creatinine Clearance 0 mL/min (70-130); Calcium 9.7 mg/dL (7.8-10.44); Carbon Dioxide 21 mmol/L (23-31); Chloride 111 mmol/L (98-107); Estimated GFR-MDRD 71; Glucose 116 mg/dL (83-110); Potassium 3.9 mmol/L (3.5-5.1); Sodium 139 mmol/L (136-145)
[2019-03-31] MEDS ORDERED: Lidocaine 5% Patch TD SCH (08:00)
[2019-03-31] MEDS ORDERED: Furosemide 40 MG/4 ML VIAL SLOW IVP SCH (08:00)
[2019-03-31] MEDS ORDERED: Lidocaine Patch Removal 1 EACH TOP SCH (08:15)
[2019-03-31] MEDS ORDERED: Non-Formulary Item 1 EACH (Fluoxetine Hcl [Fluoxetine Hcl] 20 MG) PO SCH (09:00)
[2019-03-31] MEDS: Aspirin 325 mg Enteric Coated Tablet PO SCH (09:01)
[2019-03-31] MEDS: FLUoxetine HCl 20 MG CAP PO SCH (09:01)
[2019-03-31] MEDS: NIFEdipine XL 30 MG TAB PO SCH (09:01)
[2019-03-31] MEDS: Enoxaparin Sodium 80 MG/0.8 ML SYRINGE SC SCH ×2 (09:01→21:51)
[2019-03-31 10:42] LABS: #Eosinphils 0.5 thou/uL (0.0-0.7); #Monocytes 0.8 thou/uL (0.11-0.59); #Neutrophils 6.4 thou/uL (1.40-6.50); %Basophils 0.1 % (0.0-1.0); %Eosinophils 5.6 % (0.0-10.0); %Monocytes 9.3 % (0.0-10.0); Mean Corpuscular HGB CONC 32.4 g/dL (32.0-36.0); Mean Corpuscular Hemoglobin 30.7 pg (27.0-31.0); Mean Corpuscular Volume 94.9 fL (78.0-98.0); Mean Platelet Volume 10.2 fL (7.4-10.4); Platelet Count 131 thou/uL (130-400); RBC Distribution Width 13.3 % (11.5-14.5); Red Blood Cell (RBC) Count 3.59 mill/uL (4.20-5.40); White Blood Cell (WBC) Count 8.6 thou/uL (4.8-10.8)
[2019-03-31] MEDS: cefTRIAXone\\ROCEPHIN 1 GM in Sodium Chloride 0.9% 100 ML IVPB SCH (11:31)
--- NOTE | 2019-03-31 14:00 | PDOC.PN ---
- Subjective Encounter Start Date: 03/31/19 Encounter Start Time: 07:00 Pt seen for followup re: acute metabolic encephalopathy. Feels better. No fevers or chills. - Objective Resuscitation Status - Order Detail: 03/30/19 11:03 Resuscitation Status Routine Resuscitation Status: FULL: Full Resuscitation Discussed with: patient and daughter GABY Reviewed: Yes Vital Signs & Weight: Vital Signs (12 hours) Temp Pulse Resp BP Pulse Ox 03/31/19 09:01 138 H 03/31/19 08:00 97.6 F 138 H 19 120/88 96 03/31/19 03:04 97.7 F 88 18 132/60 94 L Weight Weight 2.878 oz Result Diagrams: 03/31/19 10:15 03/31/19 04:43 EKG Reviewed by me: Yes (Tele: patricia doty) Phys Exam - Physical Examination Constitutional: NAD HEENT: moist MMs, sclera anicteric, oral pharynx no lesions, 2+ tonsils Neck: no nodes, no JVD, supple, full ROM Respiratory: clear to auscultation bilateral Cardiovascular: no rub, irregular S1, S2 Gastrointestinal: soft, non-tender, no distention, positive bowel sounds Neurological: moves all 4 limbs Psychiatric: normal affect, A&O x 3 Dx/Plan (1) Acute metabolic encephalopathy Code(s): G93.41 - METABOLIC ENCEPHALOPATHY Status: Acute Comment: Improving , likely due to hypoxia and uti (2) UTI (urinary tract infection) Status: Acute Comment: continue IV ceftriaxone (3) Acute respiratory failure with hypoxia Code(s): J96.01 - ACUTE RESPIRATORY FAILURE WITH HYPOXIA Status: Acute Comment: Likely due to volume overload (4) Atrial fibrillation with RVR Code(s): I48.91 - UNSPECIFIED ATRIAL FIBRILLATION Status: Acute Comment: continue Lovenox. Pt is on cardizem drip. (5) Volume overload Code(s): E87.70 - FLUID OVERLOAD, UNSPECIFIED Status: Acute Comment: continue furosemide (6) Hypertension Code(s): I10 - ESSENTIAL (PRIMARY) HYPERTENSION Status: Chronic Comment: controlled - Plan * . Review of Systems - Review of Systems Constitutional: negative: fever, chills, sweats, weakness, malaise Respiratory: negative: Cough, Shortness of Breath, SOB with Excertion, Pleuritic Pain, Wheezing Cardiovascular: negative: chest pain, palpitations, orthopnea, paroxysmal nocturnal dyspnea, edema, light headedness Gastrointestinal: negative: Nausea, Vomiting, Abdominal Pain, Diarrhea, Constipation, Melena, Hematochezia Genitourinary: negative: Dysuria, Frequency, Incontinence, Hematuria, Retention - Medications/Allergies Allergies/Adverse Reactions: Allergies Allergy/AdvReac Type Severity Reaction Status Date / Time Unable to Assess AdvReac Unknown Nausea Verified 03/31/19 04:09 Medications: Current Medications Acetaminophen (Tylenol) 650 mg PO Q4H PRN PRN Reason: Headache/Fever/Mild Pain (1-3) Aspirin (Ecotrin) 325 mg PO DAILY REPLACED BY [facility] Last Admin: 03/31/19 09:01 Dose: 325 mg Bisacodyl (Dulcolax) 10 mg PO DAILYPRN PRN PRN Reason: Constipation Enoxaparin Sodium (Lovenox) 80 mg SC 0900,2100 REPLACED BY [facility] Last Admin: 03/31/19 09:01 Dose: 80 mg Fluoxetine HCl (Prozac) 20 mg PO DAILY REPLACED BY [facility] Last Admin: 03/31/19 09:01 Dose: 20 mg Furosemide (Lasix) 40 mg SLOW IVP 0600,1400 REPLACED BY [facility] Ceftriaxone Sodium 1 gm/ (Sodium Chloride) 100 mls @ 200 mls/hr IVPB Q24HR REPLACED BY [facility] Last Admin: 03/31/19 11:31 Dose: 100 mls Diltiazem HCl 125 mg/ Sodium (Chloride) 125 mls @ 5 mls/hr IVPB INF DREW; Protocol Last Admin: 03/31/19 07:36 Dose: 125 mls Lidocaine (Lidoderm 5% Patch) 1 patch TD ASDIR REPLACED BY [facility] Metoprolol Succinate (Toprol Xl) 50 mg PO DAILY REPLACED BY [facility] Last Admin: 03/31/19 09:01 Dose: 50 mg Miscellaneous Medication (Lidocaine Patch Removal) 1 each TOP ASDIR REPLACED BY [facility] Nifedipine (Procardia Xl) 30 mg PO DAILY REPLACED BY [facility] Last Admin: 03/31/19 09:01 Dose: 30 mg Pantoprazole Sodium (Protonix) 40 mg PO DAILY REPLACED BY [facility] Stop: 04/14/19 09:01 Last Admin: 03/31/19 09:01 Dose: 40 mg Sodium Chloride (Flush - Normal Saline) 10 ml IVF Q12HR REPLACED BY [facility] Last Admin: 03/31/19 07:36 Dose: 10 ml Sodium Chloride (Flush - Normal Saline) 10 ml IVF PRN PRN PRN Reason: Saline Flush
[2019-03-31] MEDS: Furosemide 40 MG/4 ML VIAL SLOW IVP SCH (14:48)
--- NOTE | 2019-03-31 22:26 | CON ---
DATE OF CONSULTATION: HISTORY: Natacha Rod is an 88-year-old white female who was just admitted on March 08, 2019. She had abdominal pain and CT scan of the abdomen was consistent with acute cholecystitis. She underwent laparoscopic cholecystectomy and developed ileus postop requiring NG suction. She had an acute gangrenous cholecystitis. She apparently was sent to [facility] 5 days prior to this admission. She has been having increasing weakness. She denies any palpitations, shortness of breath, or chest discomfort. She denies ever having any cardiac problems. On admission, she was found to be in atrial fibrillation. PAST MEDICAL HISTORY: Hypertension, depression, venous stasis. OPERATIONS: Recent laparoscopic cholecystectomy, ankle and wrist surgeries, 5 back surgeries, appendectomy, , bowel resections, hysterectomy. MEDICATIONS: 1. Aspirin 325 daily. 2. Celebrex 200 daily. 3. Lotrimin cream. 4. Fluoxetine 20 mg daily. 5. Furosemide 20 daily p.r.n. 6. Meclizine 25 mg t.i.d. 7. Metoprolol 50 daily. 8. Nifedipine 30 daily. 9. Zofran p.r.n. 10. Protonix 40 daily. 11. MiraLAX. ALLERGIES: NARCOTICS. SOCIAL HISTORY: She does not smoke or drink. FAMILY HISTORY: Myocardial infarction in her son. REVIEW OF SYSTEMS: 10-point review of systems is otherwise unremarkable. PHYSICAL EXAMINATION: VITAL SIGNS: Blood pressure 123/75, pulse of 98 and irregularly irregular. HEENT: PERRL. NECK: Supple. CHEST: Clear. CARDIAC: S1 and S2 normal without any S3, S4, or murmurs. ABDOMEN: Normal bowel sounds without tenderness or organomegaly. EXTREMITIES: Reveal no clubbing, cyanosis, or edema. NEUROLOGIC: Grossly intact. SKIN: Warm and dry. LABORATORY DATA: EKG on admission revealed atrial fibrillation with rapid ventricular response with left bundle-branch block. The heart rate was 113 per minute. Hemoglobin 11.0, hematocrit 34.1, white count 8600, platelets 131,000. INR 1.1. Sodium 139, potassium 3.9, chloride 111, carbon dioxide 21, BUN 19, creatinine 0.77. Cardiac enzymes x3 are normal. TSH is normal. IMPRESSION: 1. New onset atrial fibrillation. I did pull up her EKG from March 08 on the EKG in computer system, and she was indeed in sinus rhythm on that EKG. She has been started on Lovenox 1 mg/kg. 2. Metabolic encephalopathy. The patient is not exactly certain why she is here , but thinks she had nausea and vomiting. 3. Hypoxic respiratory failure. 4. Hypertension. 5. Depression. 6. Status post laparoscopic cholecystectomy. PLAN: Echocardiogram will be performed to assess left ventricular function. I agree with anticoagulation at this time. The patient denies ever having falls. Eventually, we should transition her to an oral anticoagulant. At the present time, we will try to improve her diastolic heart failure and control the rate. Further decisions will be made once echocardiogram has been performed. Job ID: [id number] MTDD
[2019-04-01 05:33] VITALS: BMI 28.7
[2019-04-01] MEDS: Furosemide 40 MG/4 ML VIAL SLOW IVP SCH ×2 (05:33→14:04)
[2019-04-01] MEDS: FLUoxetine HCl 20 MG CAP PO SCH ×2 (09:30→12:17)
[2019-04-01] MEDS: NIFEdipine XL 30 MG TAB PO SCH (09:30)
[2019-04-01] MEDS: Aspirin 325 mg Enteric Coated Tablet PO SCH (09:31)
[2019-04-01] MEDS: Enoxaparin Sodium 80 MG/0.8 ML SYRINGE SC SCH (09:31)
[2019-04-01] MEDS ORDERED: Escitalopram Oxalate 10 mg Tablet PO SCH (11:00)
[2019-04-01] MEDS: cefTRIAXone\\ROCEPHIN 1 GM in Sodium Chloride 0.9% 100 ML IVPB SCH (12:16)
[2019-04-01] MEDS: Apixaban 5 MG TAB PO SCH (20:34)
[2019-04-01] MEDS: Amiodarone 200 MG TAB PO SCH (20:34)
--- NOTE | 2019-04-01 21:15 | PRG ---
DATE OF SERVICE: 04/01/2019 SUBJECTIVE: The patient denies any new complaints. She overall feels better. Shortness of breath is improving. She is still requiring oxygen. She has some dry cough. No fever or chills reported. Telemetry monitoring by my review showed atrial flutter/fibrillation. CT angiogram of the chest by my review on admission showed cardiomegaly with bilateral pleural effusions. REVIEW OF SYSTEMS: The patient denies any nausea, vomiting, diarrhea, or focal deficit. OBJECTIVE: VITAL SIGNS: Temperature 97.7, pulse of 82, blood pressure 120/58, O2 saturation 94% on 2 L nasal cannula. GENERAL: An 88-year-old female, in no apparent distress. LUNGS: Show diminished air entry at bilateral bases with bibasilar rales. No wheezing. HEART: S1 and S2 present. Irregularly irregular. No rubs or gallops. ABDOMEN: Soft. Bowel sounds present. EXTREMITIES: Trace edema in bilateral lower extremities. LABORATORY FINDINGS: BUN 19, creatinine 0.77. Troponin was negative. TSH 0.68. Blood cultures negative. Urine culture negative. Echocardiogram showed left ventricular ejection fraction of 40% to 45% with [id number] tricuspid regurgitation, mild mitral regurgitation. IMPRESSION: 1. Acute hypoxic respiratory failure secondary to acute on chronic diastolic heart failure exacerbation. 2. New-onset atrial fibrillation, rate controlled. 3. [id number] tricuspid regurgitation. 4. Hypertension. 5. Depression, mild, stable. 6. Urinary tract infection, currently on ceftriaxone. She was on ciprofloxacin prior to admission (urinary tract infection was present prior to admission). 7. Chronic venous stasis. 8. Recent acute gangrenous cholecystitis, status post laparoscopic cholecystectomy. 9. Physical deconditioning. 10. Toxic metabolic encephalopathy on admission, improving. PLAN: Cardizem drip will be continued. We will continue anticoagulation with Lovenox. Monitor labs on a daily basis. Continue Toprol-XL. We will hold Procardia XL for systolic blood pressure less than 130. Recheck labs in a.m. Continue other medications. PT/OT evaluation. Job ID: [id number]
[2019-04-02 00:38] LABS: Hemoglobin 10.7 g/dL (12.0-16.0); Platelet Count 157 thou/uL (130-400)
[2019-04-02] MEDS: Furosemide 40 MG/4 ML VIAL SLOW IVP SCH ×2 (05:13→13:20)
[2019-04-02 05:38] LABS: Albumin 3.4 g/dL (3.4-4.8); Anion Gap 13 mmol/L (10-20); BUN (Urea Nitrogen) 20 mg/dL (9.8-20.1); Calc. Creatinine Clearance 51 mL/min (70-130); Calcium 10.2 mg/dL (7.8-10.44); Carbon Dioxide 27 mmol/L (23-31); Chloride 105 mmol/L (98-107); Estimated GFR-MDRD 52; Glucose 138 mg/dL (83-110); Magnesium 1.8 mg/dL (1.6-2.6); Phosphorus 3.2 mg/dL (2.3-4.7); Potassium 3.4 mmol/L (3.5-5.1); Sodium 142 mmol/L (136-145)
[2019-04-02] MEDS: Amiodarone 200 MG TAB PO SCH ×2 (08:21→20:03)
[2019-04-02] MEDS: Escitalopram Oxalate 10 mg Tablet PO SCH (08:22)
[2019-04-02] MEDS: Saccharomyces boulardii 250 MG CAP PO SCH (08:22)
[2019-04-02] MEDS: NIFEdipine XL 30 MG TAB PO SCH ×2 (08:22→08:24)
[2019-04-02] MEDS: Apixaban 5 MG TAB PO SCH ×2 (08:22→20:03)
[2019-04-02] MEDS ORDERED: Aspirin 81 mg Enteric Coated Tablet PO SCH (09:00)
[2019-04-02] MEDS ORDERED: Potassium Chloride 20 MEQ TAB PO SCH (10:00)
[2019-04-02] MEDS: cefTRIAXone\\ROCEPHIN 1 GM in Sodium Chloride 0.9% 100 ML IVPB SCH (10:48)
[2019-04-02 15:05] LABS: #Eosinphils 0.7 thou/uL (0.0-0.7); #Neutrophils 6.2 thou/uL (1.40-6.50); %Basophils 0.4 % (0.0-1.0); %Eosinophils 7.6 % (0.0-10.0); %Lymphocytes 10.9 % (21.0-51.0); %Monocytes 11.2 % (0.0-10.0); Hypochromia SLIGHT = 6-15 cells (100X) (0-5/hpf); MDiff Complete? YES; Mean Corpuscular HGB CONC 31.8 g/dL (32.0-36.0); Mean Corpuscular Hemoglobin 30.4 pg (27.0-31.0); Mean Corpuscular Volume 95.4 fL (78.0-98.0); Mean Platelet Volume 12.6 fL (7.4-10.4); Platelet Morphology Comment PLT clumps seen-ADEQ; RBC Distribution Width 13.2 % (11.5-14.5); Red Blood Cell (RBC) Count 3.64 mill/uL (4.20-5.40); White Blood Cell (WBC) Count 8.9 thou/uL (4.8-10.8)
[2019-04-02] MEDS: Potassium Chloride 20 MEQ TAB PO SCH (17:26)
--- NOTE | 2019-04-02 18:41 | PDOC.PN ---
- Subjective Encounter Start Date: 04/02/19 Encounter Start Time: 09:30 Patient seen and examined for CHF/Afib. No CP/palpitations. No new complaints. No overnight events - Objective Resuscitation Status - Order Detail: 03/30/19 11:03 Resuscitation Status Routine Resuscitation Status: FULL: Full Resuscitation Discussed with: patient and daughter GABY Reviewed: Yes Vital Signs & Weight: Vital Signs (12 hours) Temp Pulse Pulse Pulse Resp BP BP 04/02/19 15:33 97.6 F 102 H 20 04/02/19 13:55 59 L 97 110/59 L 105/66 04/02/19 11:44 98.4 F 71 18 04/02/19 08:24 71 04/02/19 07:46 99.2 F 71 18 04/02/19 07:45 BP Pulse Ox 04/02/19 15:33 113/56 L 96 04/02/19 13:55 04/02/19 11:44 110/61 95 04/02/19 08:24 04/02/19 07:46 111/70 100 04/02/19 07:45 100 Weight Weight 176 lb 8 oz I&O: 04/01/19 04/02/19 04/03/19 06:59 06:59 06:59 Intake Total 1302 631 6968 Output Total 6346 614 7870 Balance -520 592 120 Result Diagrams: 04/02/19 04:29 04/02/19 04:29 EKG Reviewed by me: Yes (Tele Afib) Phys Exam - Physical Examination Constitutional: NAD Respiratory: no wheezing, no rhonchi Cardiovascular: no rub, irregular Gastrointestinal: soft, positive bowel sounds Musculoskeletal: edema present Neurological: non-focal Dx/Plan - Plan PT/OT IMPRESSION: 1. Acute hypoxic respiratory failure secondary to acute on chronic diastolic heart failure exacerbation. 2. New-onset atrial fibrillation, rate controlled. 3. Hypokalemia 4. Hypertension. 5. Depression, mild, stable. 6. Urinary tract infection, currently on ceftriaxone (present on admission). 7. Chronic venous stasis. 8. Recent acute gangrenous cholecystitis, status post laparoscopic cholecystectomy. 9. Physical deconditioning. 10. Toxic metabolic encephalopathy on admission, improving. 11. Pfocckwx-[id number] tricuspid regurgitation. 12. Chronic Anemia PLAN: Replace Potassium Cont diuresis On Anticoag AM labs On Amiodarone Hold Procardia XK Cont Toprol XL DC Ceftriaxone in 1-2 days Review of Systems - Review of Systems Respiratory: negative: Cough, Dry, Shortness of Breath, Hemoptysis, SOB with Excertion, Pleuritic Pain, Sputum, Wheezing Cardiovascular: negative: chest pain, palpitations, orthopnea, paroxysmal nocturnal dyspnea, edema, light headedness, other - Medications/Allergies Allergies/Adverse Reactions: Allergies Allergy/AdvReac Type Severity Reaction Status Date / Time Unable to Assess AdvReac Unknown Nausea Verified 03/31/19 04:09 Medications: Current Medications Acetaminophen (Tylenol) 650 mg PO Q4H PRN PRN Reason: Headache/Fever/Mild Pain (1-3) Amiodarone HCl (Cordarone) 400 mg PO BID [facility] Last Admin: 04/02/19 08:21 Dose: 400 mg Apixaban (Eliquis) 5 mg PO BID [facility] Last Admin: 04/02/19 08:22 Dose: 5 mg Bisacodyl (Dulcolax) 10 mg PO DAILYPRN PRN PRN Reason: Constipation Last Admin: 04/01/19 20:34 Dose: 10 mg Escitalopram Oxalate (Lexapro) 10 mg PO DAILY [facility] Last Admin: 04/02/19 08:22 Dose: 10 mg Furosemide (Lasix) 40 mg SLOW IVP 0600,1400 [facility] Last Admin: 04/02/19 13:20 Dose: 40 mg Ceftriaxone Sodium 1 gm/ (Sodium Chloride) 100 mls @ 200 mls/hr IVPB Q24HR [facility] Last Admin: 04/02/19 10:48 Dose: 100 mls Diltiazem HCl 125 mg/ Sodium (Chloride) 125 mls @ 5 mls/hr IVPB INF DREW; Protocol Last Admin: 04/02/19 05:13 Dose: 125 mls Lidocaine (Lidoderm 5% Patch) 1 patch TD ASDIR [facility] Metoprolol Succinate (Toprol Xl) 50 mg PO DAILY [facility] Last Admin: 04/02/19 08:22 Dose: 50 mg Miscellaneous Medication (Lidocaine Patch Removal) 1 each TOP ASDIR DREW Nifedipine (Procardia Xl) 30 mg PO DAILY [facility] Last Admin: 04/02/19 08:24 Dose: Not Given Pantoprazole Sodium (Protonix) 40 mg PO DAILY [facility] Stop: 04/14/19 09:01 Last Admin: 04/02/19 08:21 Dose: 40 mg Potassium Chloride (K-Dur) 20 meq PO BID-WM [facility] Last Admin: 04/02/19 17:26 Dose: 20 meq Saccharomyces Boulardii (Florastor) 250 mg PO DAILY [facility] Last Admin: 04/02/19 08:22 Dose: 250 mg Sodium Chloride (Flush - Normal Saline) 10 ml IVF Q12HR [facility] Last Admin: 04/02/19 08:25 Dose: Not Given Sodium Chloride (Flush - Normal Saline) 10 ml IVF PRN PRN PRN Reason: Saline Flush
[2019-04-03] MEDS: Furosemide 40 MG/4 ML VIAL SLOW IVP SCH ×2 (05:41→13:38)
[2019-04-03 06:49] LABS: Anion Gap 13 mmol/L (10-20); BUN (Urea Nitrogen) 24 mg/dL (9.8-20.1); Calc. Creatinine Clearance 42 mL/min (70-130); Calcium 9.6 mg/dL (7.8-10.44); Carbon Dioxide 25 mmol/L (23-31); Chloride 105 mmol/L (98-107); Estimated GFR-MDRD 43; Glucose 126 mg/dL (83-110); Magnesium 1.8 mg/dL (1.6-2.6); Potassium 3.7 mmol/L (3.5-5.1); Sodium 139 mmol/L (136-145)
[2019-04-03 07:28] LABS: #Eosinphils 0.4 thou/uL (0.0-0.7); #Lymphocytes 1.4 thou/uL (1.20-3.40); #Monocytes 1.1 thou/uL (0.11-0.59); %Basophils 0.5 % (0.0-1.0); %Eosinophils 3.8 % (0.0-10.0); %Lymphocytes 13.8 % (21.0-51.0); %Monocytes 11.3 % (0.0-10.0); %Neutrophils 70.7 % (42.0-75.0); Hemoglobin 9.8 g/dL (12.0-16.0); MDiff Complete? YES; Mean Corpuscular HGB CONC 32.5 g/dL (32.0-36.0); Mean Corpuscular Hemoglobin 30.4 pg (27.0-31.0); Mean Corpuscular Volume 93.5 fL (78.0-98.0); Mean Platelet Volume 12.3 fL (7.4-10.4); Platelet Clumps MARKED; Platelet Morphology Comment PLT clumps seen-ADEQ; Polychromasia SLIGHT = 2-3 cells (100X) (0-2/hpf); RBC Distribution Width 13.1 % (11.5-14.5); Red Blood Cell (RBC) Count 3.23 mill/uL (4.20-5.40); White Blood Cell (WBC) Count 9.9 thou/uL (4.8-10.8)
[2019-04-03] MEDS: Escitalopram Oxalate 10 mg Tablet PO SCH (09:10)
[2019-04-03] MEDS: Saccharomyces boulardii 250 MG CAP PO SCH (09:10)
[2019-04-03] MEDS: Apixaban 5 MG TAB PO SCH ×2 (09:15→21:19)
[2019-04-03] MEDS: Amiodarone 200 MG TAB PO SCH ×2 (09:15→21:18)
[2019-04-03] MEDS: Potassium Chloride 20 MEQ TAB PO SCH ×2 (09:15→16:47)
[2019-04-03] MEDS: cefTRIAXone\\ROCEPHIN 1 GM in Sodium Chloride 0.9% 100 ML IVPB SCH (11:17)
--- NOTE | 2019-04-03 22:02 | PDOC.PN ---
- Subjective Encounter Start Date: 04/03/19 Encounter Start Time: 17:00 Patient seen and examined for CHF/Afib. SOB improving. No new complaints. No overnight events - Objective Resuscitation Status - Order Detail: 03/30/19 11:03 Resuscitation Status Routine Resuscitation Status: FULL: Full Resuscitation Discussed with: patient and daughter GABY Reviewed: Yes Vital Signs & Weight: Vital Signs (12 hours) Temp Pulse Resp BP Pulse Ox 04/03/19 19:00 97.8 F 82 18 111/66 92 L 04/03/19 15:45 98.2 F 71 18 102/62 97 04/03/19 11:14 99 F 83 20 115/63 97 Weight Weight 177 lb I&O: 04/02/19 04/03/19 04/04/19 06:59 06:59 06:59 Intake Total 992 1434 720 Output Total 400 1650 1450 Balance 592 216 730 Result Diagrams: 04/03/19 04:57 04/03/19 04:57 EKG Reviewed by me: Yes (Tele Afib) Phys Exam - Physical Examination Constitutional: NAD Respiratory: no wheezing, no rhonchi Cardiovascular: no rub, irregular Gastrointestinal: soft, non-tender, positive bowel sounds Neurological: moves all 4 limbs Dx/Plan - Plan IMPRESSION: 1. Acute hypoxic respiratory failure secondary to acute on chronic diastolic heart failure exacerbation. ACC stage C. 2. New-onset atrial fibrillation with RVR s/p Cardizem drip 3. Hypokalemia 4. Hypertension. 5. Depression, mild, stable. 6. Urinary tract infection(present on admission). 7. Chronic venous stasis. 8. Recent acute gangrenous cholecystitis, status post laparoscopic cholecystectomy. 9. Physical deconditioning. 10. Toxic metabolic encephalopathy on admission 11. Tlrhmell-vu-uqfbxu tricuspid regurgitation. 12. Chronic Anemia PLAN: DC Lasix/Potassium Cont Eliquis AM labs On Amiodarone loading Cont Toprol XL DC Ceftriaxone Check Postvoid residual Review of Systems - Review of Systems Respiratory: negative: Cough, Dry, Shortness of Breath, Hemoptysis, SOB with Excertion, Pleuritic Pain, Sputum, Wheezing Cardiovascular: negative: chest pain, palpitations, orthopnea, paroxysmal nocturnal dyspnea, edema, light headedness, other - Medications/Allergies Allergies/Adverse Reactions: Allergies Allergy/AdvReac Type Severity Reaction Status Date / Time Unable to Assess AdvReac Unknown Nausea Verified 03/31/19 04:09 Medications: Current Medications Acetaminophen (Tylenol) 650 mg PO Q4H PRN PRN Reason: Headache/Fever/Mild Pain (1-3) Amiodarone HCl (Cordarone) 400 mg PO BID [facility] Last Admin: 04/03/19 21:18 Dose: 400 mg Apixaban (Eliquis) 5 mg PO BID [facility] Last Admin: 04/03/19 21:19 Dose: 5 mg Bisacodyl (Dulcolax) 10 mg PO DAILYPRN PRN PRN Reason: Constipation Last Admin: 04/01/19 20:34 Dose: 10 mg Escitalopram Oxalate (Lexapro) 10 mg PO DAILY [facility] Last Admin: 04/03/19 09:10 Dose: 10 mg Lidocaine (Lidoderm 5% Patch) 1 patch TD ASDIR [facility] Metoprolol Succinate (Toprol Xl) 50 mg PO DAILY [facility] Last Admin: 04/03/19 09:15 Dose: 50 mg Miscellaneous Medication (Lidocaine Patch Removal) 1 each TOP ASDIR [facility] Nifedipine (Procardia Xl) 30 mg PO DAILY [facility] Last Admin: 04/02/19 08:24 Dose: Not Given Pantoprazole Sodium (Protonix) 40 mg PO DAILY [facility] Stop: 04/14/19 09:01 Last Admin: 04/03/19 09:10 Dose: 40 mg Saccharomyces Boulardii (Florastor) 250 mg PO DAILY [facility] Last Admin: 04/03/19 09:10 Dose: 250 mg Sodium Chloride (Flush - Normal Saline) 10 ml IVF Q12HR [facility] Last Admin: 04/03/19 21:19 Dose: 10 ml Sodium Chloride (Flush - Normal Saline) 10 ml IVF PRN PRN PRN Reason: Saline Flush
[2019-04-03] MEDS ORDERED: Labetalol HCl 100 MG/20 ML VIAL SLOW IVP PRN (23:00)
[2019-04-04] MEDS: Escitalopram Oxalate 10 mg Tablet PO SCH (08:26)
[2019-04-04] MEDS: Amiodarone 200 MG TAB PO SCH ×2 (08:26→21:31)
[2019-04-04] MEDS: Saccharomyces boulardii 250 MG CAP PO SCH (08:26)
[2019-04-04] MEDS: Apixaban 5 MG TAB PO SCH ×2 (08:26→21:32)
[2019-04-04] MEDS ORDERED: PROPOFOL 20 ML ONE (08:57)
[2019-04-04] MEDS ORDERED: Furosemide 40 MG/4 ML VIAL SLOW IVP SCH (09:00)
[2019-04-04 11:43] LABS: Hemoglobin 10.4 g/dL (12.0-16.0)
--- NOTE | 2019-04-04 11:57 | OP ---
ELECTRICAL CARDIOVERSION: Date: 04/04/19 The patient remained sedated after transesophageal echo was performed, demonstrating no intracardiac thrombus. With 200 joules of synchronized energy, she returned to sinus bradycardia with heart rate i n the 50s. The patient tolerated the procedure well.
[2019-04-04 12:00] LABS: Anion Gap 10 mmol/L (10-20); BUN (Urea Nitrogen) 24 mg/dL (9.8-20.1); Calc. Creatinine Clearance 44 mL/min (70-130); Calcium 9.8 mg/dL (7.8-10.44); Carbon Dioxide 30 mmol/L (23-31); Chloride 101 mmol/L (98-107); Estimated GFR-MDRD 47; Glucose 117 mg/dL (83-110); Magnesium 1.9 mg/dL (1.6-2.6); Potassium 4.4 mmol/L (3.5-5.1); Sodium 137 mmol/L (136-145)
--- NOTE | 2019-04-04 16:09 | PDOC.PN ---
- Subjective Encounter Start Date: 04/04/19 Encounter Start Time: 15:00 Patient seen and examined for CHF/Afib with RVR. s/p MARGARITA-CV. No CP. No new complaints. No overnight events - Objective Resuscitation Status - Order Detail: 03/30/19 11:03 Resuscitation Status Routine Resuscitation Status: FULL: Full Resuscitation Discussed with: patient and daughter GABY Reviewed: Yes Vital Signs & Weight: Vital Signs (12 hours) Temp Pulse Resp BP Pulse Ox 04/04/19 11:12 97.8 F 53 L 18 134/63 97 04/04/19 07:31 98.1 F 82 18 130/74 96 Weight Weight 173 lb 9.6 oz I&O: 04/03/19 04/04/19 04/05/19 06:59 06:59 06:59 Intake Total 1434 970 110 Output Total 1650 1450 0 Balance -216 -480 110 Result Diagrams: 04/04/19 11:26 04/04/19 11:26 EKG Reviewed by me: Yes (Tele SB) Phys Exam - Physical Examination Constitutional: NAD Respiratory: no wheezing, no rhonchi Cardiovascular: RRR, no rub Gastrointestinal: soft, non-tender, positive bowel sounds Musculoskeletal: no edema Neurological: moves all 4 limbs Dx/Plan - Plan IMPRESSION: 1. Acute hypoxic respiratory failure secondary to acute on chronic diastolic heart failure exacerbation. ACC stage C. 2. New-onset atrial fibrillation with RVR - Off Cardizem drip 3. Hypokalemia - replaced 4. Hypertension. 5. Depression, mild, stable. 6. Urinary tract infection(present on admission). Completed Atbx 7. Chronic venous stasis. 8. Recent acute gangrenous cholecystitis, status post laparoscopic cholecystectomy. 9. Physical deconditioning. 10. Toxic metabolic encephalopathy on admission 11. Lgxnyacd-on-lbctuk tricuspid regurgitation. 12. Chronic Anemia PLAN: s/p MARGARITA-CV - in SR Cont Eliquis with Amiodarone Toprol XL dced Probably dc to SNF in AM if stable Review of Systems - Review of Systems Respiratory: negative: Cough, Dry, Shortness of Breath, Hemoptysis, SOB with Excertion, Pleuritic Pain, Sputum, Wheezing Cardiovascular: negative: chest pain, palpitations, orthopnea, paroxysmal nocturnal dyspnea, edema, light headedness, other Gastrointestinal: negative: Nausea, Vomiting, Abdominal Pain, Diarrhea, Constipation, Melena, Hematochezia, Other - Medications/Allergies Allergies/Adverse Reactions: Allergies Allergy/AdvReac Type Severity Reaction Status Date / Time Unable to Assess AdvReac Unknown Nausea Verified 03/31/19 04:09 Medications: Current Medications Acetaminophen (Tylenol) 650 mg PO Q4H PRN PRN Reason: Headache/Fever/Mild Pain (1-3) Amiodarone HCl (Cordarone) 400 mg PO BID [facility] Last Admin: 04/04/19 08:26 Dose: 400 mg Apixaban (Eliquis) 5 mg PO BID [facility] Last Admin: 04/04/19 08:26 Dose: 5 mg Bisacodyl (Dulcolax) 10 mg PO DAILYPRN PRN PRN Reason: Constipation Last Admin: 04/01/19 20:34 Dose: 10 mg Escitalopram Oxalate (Lexapro) 10 mg PO DAILY [facility] Last Admin: 04/04/19 08:26 Dose: 10 mg Labetalol HCl (Normodyne) 10 mg SLOW IVP Q4H PRN PRN Reason: Systolic BP > 180 Nifedipine (Procardia Xl) 30 mg PO DAILY [facility] Pantoprazole Sodium (Protonix) 40 mg PO DAILY [facility] Stop: 04/14/19 09:01 Last Admin: 04/04/19 08:26 Dose: 40 mg Saccharomyces Boulardii (Florastor) 250 mg PO DAILY [facility] Last Admin: 04/04/19 08:26 Dose: 250 mg Sodium Chloride (Flush - Normal Saline) 10 ml IVF Q12HR [facility] Last Admin: 04/04/19 08:27 Dose: 10 ml Sodium Chloride (Flush - Normal Saline) 10 ml IVF PRN PRN PRN Reason: Saline Flush
[2019-04-04] MEDS ORDERED: PROPOFOL 200 MG/20 ML VIAL ONE (16:44)
--- NOTE | 2019-04-05 07:02 | EKG ---
Test Reason : POST CARDIOVERSION Blood Pressure : / mmHG Vent. Rate : 050 BPM Atrial Rate : 050 BPM P-R Int : 218 ms QRS Dur : 146 ms QT Int : 526 ms P-R-T Axes : 077 -72 100 degrees QTc Int : 479 ms Sinus bradycardia with 1st degree A-V block Left axis deviation Left bundle branch block Abnormal ECG Confirmed by DR. Lanie SARAVIA ([id number]) on 04/05/2019 7:02:33 AM Referred By: DAMON Confirmed By:DR. Lanie SARAVIA
--- NOTE | 2019-04-05 07:32 | OP ---
DATE OF PROCEDURE: 04/04/2019 PROCEDURE PERFORMED: Transesophageal echocardiogram. INDICATIONS: Ms. Natacha Rod is an 88-year-old woman with paroxysmal atrial fibrillation. DESCRIPTION OF PROCEDURE: The patient was taken to the PACU. The patient was sedated by Anesthesiology. A transesophageal probe was placed into the distal esophagus and stomach. Echocardiographic images were obtained. The transesophageal probe was removed. FINDINGS: 1. Mild decrease in left ventricular systolic function. 2. Normal aortic valve. 3. Mild aortic regurgitation. 4. Moderate mitral regurgitation. 5. Mild tricuspid regurgitation. 6. No formed thrombus in left atrium and left atrial appendage. 7. Atherosclerotic debris in the descending aorta. IMPRESSION: No formed thrombus in the left atrium or left atrial appendage. Job ID: [id number]
[2019-04-05 07:55] VITALS: TEMP 98.2
[2019-04-05] MEDS: Saccharomyces boulardii 250 MG CAP PO SCH (08:33)
[2019-04-05] MEDS: Apixaban 5 MG TAB PO SCH (08:33)
[2019-04-05] MEDS: Amiodarone 200 MG TAB PO SCH (08:33)
[2019-04-05] MEDS: Escitalopram Oxalate 10 mg Tablet PO SCH (08:33)
[2019-04-05] MEDS ORDERED: NIFEdipine XL 30 MG TAB PO SCH (09:00)
[2019-04-05 11:25] VITALS: BP 139/67
--- NOTE | 2019-04-05 12:38 | DIS ---
DATE OF ADMISSION: 03/30/2019 DATE OF DISCHARGE: 04/05/2019 DISCHARGE DISPOSITION: [facility] facility [facility]. The patient was seen and examined on the day of discharge. Denies any new complaints. No chest pain, shortness of breath, or palpitations. DISCHARGE MEDICATIONS: 1. Amiodarone 400 mg twice a day for 2 weeks, then 200 mg twice a day for 2 weeks, and then 200 mg daily. 2. Eliquis 5 mg b.i.d. 3. Lasix 20 mg daily as needed. 4. Procardia XL 30 mg daily. 5. Protonix 40 mg daily. 6. Florastor 250 mg daily. 7. Meclizine 25 mg 3 times daily as needed. 8. Zofran as needed. 9. Tylenol as needed. 10. Lexapro 10 mg daily. 11. Imodium as needed. 12. MiraLAX as needed. INPATIENT CONSULTANTS: Cardiology, Dr. Suresh Ely. BRIEF HOSPITAL COURSE: The patient is an 88-year-old female with recent laparoscopic cholecystitis, presented to the hospital with altered mentation along with shortness of breath. A workup was consistent with acute hypoxic respiratory failure secondary to diastolic heart failure exacerbation along with new onset of atrial fibrillation with rapid ventricular response. She was started on Cardizem drip along with anticoagulation. She was monitored on the telemetry unit. She underwent MARGARITA cardioversion during this hospital stay. She has been started on amiodarone. Metoprolol succinate has been discontinued due to bradycardia post cardioversion. She understands the risk associated with anticoagulation. On admission, the patient was on antibiotics for UTI, which has been completed. The patient also had some electrolyte abnormalities, which have been replaced. FINAL DIAGNOSES: 1. Acute hypoxic respiratory failure secondary to acute on chronic diastolic heart failure exacerbation. 2. New onset atrial fibrillation with rapid ventricular response. 3. Hypertension. 4. Hypokalemia, replaced. 5. Depression, mild, stable. 6. Urinary tract infection, present on admission, completed antibiotics. Repeat urine cultures were negative. 7. Chronic venous stasis. 8. Physical deconditioning. 9. Toxic metabolic encephalopathy on admission resolved. 10. Tgrfuxgk-pe-znuwfk tricuspid regurgitation. 11. Chronic anemia. 12. Recent acute gangrenous cholecystitis, status post laparoscopic cholecystectomy. PLAN: Plan of care was discussed with the patient and the family in detail, they stated understanding. TIME SPENT: Total time coordinating the discharge of this patient was 35 minutes. Job ID: [id number]
--- NOTE | 2019-04-06 13:44 | EKG ---
Test Reason : AMS Blood Pressure : / mmHG Vent. Rate : 113 BPM Atrial Rate : 113 BPM P-R Int : 000 ms QRS Dur : 136 ms QT Int : 342 ms P-R-T Axes : 000 -62 121 degrees QTc Int : 469 ms Atrial fibrillation with rapid ventricular response -new Left axis deviation Left bundle branch block Abnormal ECG Confirmed by TEMITOPE JARRETT, LOLLY ([id number]), graphics editor MAGDALENO CAMPBELL ([id number]) on 04/06/2019 1:44:18 PM Referred By: LINDA Confirmed By:LOLLY LINN MD
== END 2019-04-05 14:30 | DRG 291 ==
LOC: ERS 07:31 → ERHOLD 10:06 → 2NO 14:49
PROVIDERS: ADMIT Internal Medicine; ATTEND Internal Medicine
PROC: 5A2204Z Restoration of Cardiac Rhythm, Single (ICD-10-PCS; principal; 2019-04-04)
PROC: B24BZZ4 Ultrasonography of Heart with Aorta, Transesophageal (ICD-10-PCS; 2019-04-04)
DX: I11.0 Hypertensive heart disease with heart failure (principal); J96.01 Acute respiratory failure with hypoxia; G92 Toxic encephalopathy; N39.0 Urinary tract infection, site not specified; I50.33 Acute on chronic diastolic (congestive) heart failure; I48.0 Paroxysmal atrial fibrillation; F32.9 Major depressive disorder, single episode, unspecified; I87.8 Other specified disorders of veins; I07.1 Rheumatic tricuspid insufficiency; D64.9 Anemia, unspecified; E87.6 Hypokalemia; Z90.710 Acquired absence of both cervix and uterus; Z90.49 Acquired absence of other specified parts of digestive tract; Z79.899 Other long term (current) drug therapy; Z88.5 Allergy status to narcotic agent
CPT/HCPCS: 36415; 51701; 70450; 71275; 80048; 80053; 80069; 81003; 81015; 82140; 82550; 82565; 83605; 83690; 83735; 83880; 84443; 84484; 85014; 85018; 85025; 85049; 85610; 85730; 87040; 87086; 92960; 93005; 93010; 93306; 93312; 96361; 96365; 96374; A4353; J0696; J1650; J1940; J2704; J3475; J3490; Q9966